=== PATIENT | male | born 1975 | race Caucasian/White ===

== ENCOUNTER → 2017-11-16 | Outpatient (CLI) | payer MEDICARE, OTHER | END | disposition home or self-care (01) | LOC: PMGWOUND 08:07 | DX: L89.314 Pressure ulcer of right buttock, stage 4 (principal); L89.323 Pressure ulcer of left buttock, stage 3; G82.20 Paraplegia, unspecified; I10 Essential (primary) hypertension; F41.9 Anxiety disorder, unspecified; Z87.891 Personal history of nicotine dependence | CPT/HCPCS: 99204; 99214 ==

== ENCOUNTER 2017-11-28 07:46 | Inpatient (IN) | payer MEDICARE, OTHER ==
[~2017-11-28 07:46] MED LIST: HYDROmorphone 2 MG/ML VIAL IV; LIDOCAINE 1% PF 2 ML VIAL. ID; MORPHINE SULFATE 2 MG/ML DISP.SYRIN. IV; ONDANSETRON PF 4 MG/2 ML VIAL. IV; PROCHLORPERAZINE 10 MG/2 ML VIAL. IV; ceFAZolin 2GM PREMIX 2 GM/50 ML BAG IV; fentaNYL PF VIAL 100 MCG/2 ML VIAL IV
[2017-11-28] MEDS: IV RINGERS,LACTATED 1000ML 1,000 ML IV (08:26)
[2017-11-28] MEDS ORDERED: MIDAZOLAM HCL/PF 2 MG/2 ML VIAL. (08:35)
[2017-11-28] MEDS ORDERED: DEXAMETHASONE SOD PHOS 20 MG/5 ML VIAL. ×2 (08:35→11:03)
[2017-11-28] MEDS ORDERED: ONDANSETRON PF 4 MG/2 ML VIAL. ×2 (08:35→11:03)
[2017-11-28] MEDS ORDERED: LIDOCAINE 2% PF Vial for OR 5 ML VIAL. ×2 (08:35→11:03)
[2017-11-28] MEDS ORDERED: PROPOFOL 0 ML IV (08:35)
[2017-11-28] MEDS ORDERED: fentaNYL PF VIAL 100 MCG/2 ML VIAL (08:35)
[2017-11-28] MEDS ORDERED: SEVOFLURANE 61 TO 120 MINUTES. IH (09:19)
[2017-11-28] MEDS ORDERED: KETOROLAC 30 MG/ML INJ FOR OR. INJ (09:54)
[2017-11-28] MEDS ORDERED: PROPOFOL 20 ML IV (11:03)
[2017-11-28] MEDS ORDERED: 0.9 % SODIUM CHLORIDE 10 ML DISP.SYRIN. IV (12:00)
[2017-11-28] MEDS ORDERED: diphenhydrAMINE 50 MG/ML VIAL IV (12:00)
[2017-11-28] MEDS: POTASSIUM CL 20MEQ-0.45% NACL 1,000 ML IV (13:00)
[2017-11-28] MEDS: diphenhydrAMINE HCL 25 MG CAPSULE PO (18:24)
[2017-11-28] MEDS: DOCUSATE SODIUM 100 MG CAPSULE. PO (21:00)
[2017-11-28] MEDS: ENOXAPARIN 40 MG/0.4 ML SYRINGE. SQ (21:44)
[2017-11-29] MEDS: POTASSIUM CL 20MEQ-0.45% NACL 1,000 ML IV ×2 (03:10→15:06)
[2017-11-29 05:49] LABS: MEAN CORPUSCULAR HEMOGLOBIN 26 pg (25-35); MEAN CORPUSCULAR HGB CONC 32 g/dL (31-37); MEAN CORPUSCULAR VOLUME 80 fL (79-100); PLATELET COUNT 223 x10^3/uL (140-400); RED BLOOD COUNT 4.23 x10^6/uL (4.30-5.70); RED CELL DISTRIBUTION WIDTH 17.1 % (11.5-14.5); WHITE BLOOD COUNT 10.2 x10^3/uL (4.0-11.0)
[2017-11-29 05:57] LABS: INR 1.1 (0.8-1.1); PROTHROMBIN TIME PATIENT 13.7 SEC (11.7-14.0)
[2017-11-29] MEDS: DOCUSATE SODIUM 100 MG CAPSULE. PO ×2 (07:59→21:00)
[2017-11-29] MEDS: LIDOCAINE 1% PF 2 ML VIAL. INJ (08:15)
[2017-11-29] MEDS: ONDANSETRON PF 4 MG/2 ML VIAL. IV (09:23)
[2017-11-29] MEDS: HYDROmorphone 2 MG/ML VIAL IV (09:25)
[2017-11-29] MEDS: LIDOCAINE 2%/EPI 1:100,000 20 ML VIAL. IJ ×2 (09:30)
[2017-11-29] MEDS ORDERED: VANCOMYCIN 1 GM in IV DEXTROSE 5% 250 ML IV (11:30)
[2017-11-29 12:11] LABS: ANION GAP 5 (6-14); BLOOD UREA NITROGEN 15 mg/dL (8-26); CALCIUM 7.8 mg/dL (8.5-10.1); CARBON DIOXIDE 30 mmol/L (21-32); CHLORIDE 106 mmol/L (98-107); CREATININE 0.6 mg/dL (0.7-1.3); GLUCOSE 97 mg/dL (70-99); POTASSIUM 4.2 mmol/L (3.5-5.1); SODIUM 141 mmol/L (136-145)
[2017-11-29 13:20] LABS: SEDIMENTATION RATE 36 (0-15)
[2017-11-29] MEDS: PIPERACILLIN/TAZOBACTAM 3.375 GM in IV NORMAL SALINE 50ML 50 ML IV ×2 (15:06→18:06)
[2017-11-29] MEDS: MULTIVITAMIN with MINERAL TABLET. PO (15:07)
[2017-11-29] MEDS: VANCOMYCIN 1 GM in IV 1/2 NORMAL SALINE 250 ML IV (15:07)
[2017-11-29] MEDS ORDERED: 0.9 % SODIUM CHLORIDE 10 ML DISP.SYRIN. IV ×2 (15:15)
[2017-11-29] MEDS: VANCOMYCIN PER PHARMACY MC (17:48)
[2017-11-29] MEDS: oxyCODONE/APAP 5/325 1 TAB TABLET PO (21:35)
[2017-11-29] MEDS: ASCORBIC ACID 500 MG TABLET PO (21:35)
[2017-11-29] MEDS: ENOXAPARIN 40 MG/0.4 ML SYRINGE. SQ (21:38)
[2017-11-30] MEDS: PIPERACILLIN/TAZOBACTAM 3.375 GM in IV NORMAL SALINE 50ML 50 ML IV ×4 (00:28→17:53)
[2017-11-30] MEDS: VANCOMYCIN 1 GM in IV 1/2 NORMAL SALINE 250 ML IV ×2 (03:16→14:57)
[2017-11-30] MEDS: POTASSIUM CL 20MEQ-0.45% NACL 1,000 ML IV (05:51)
[2017-11-30] MEDS: MULTIVITAMIN with MINERAL TABLET. PO (08:52)
[2017-11-30] MEDS: ASCORBIC ACID 500 MG TABLET PO ×2 (08:52→21:44)
[2017-11-30] MEDS: DOCUSATE SODIUM 100 MG CAPSULE. PO ×3 (08:54→23:59)
[2017-11-30] MEDS ORDERED: HYDROmorphone 2 MG/ML VIAL IV (11:15)
[2017-11-30] MEDS: VANCOMYCIN PER PHARMACY MC (11:18)
[2017-11-30] MEDS: oxyCODONE/APAP 5/325 1 TAB TABLET PO (12:03)
[2017-11-30] MEDS: LACTOBACILLUS RHAMNOSUS GG 1 CAPSULE. PO (21:44)
[2017-11-30] MEDS: ENOXAPARIN 40 MG/0.4 ML SYRINGE. SQ (21:45)
[2017-12-01] MEDS: PIPERACILLIN/TAZOBACTAM 3.375 GM in IV NORMAL SALINE 50ML 50 ML IV ×2 (00:05→08:32)
[2017-12-01 03:48] LABS: CREATININE 0.5 mg/dL (0.7-1.3)
[2017-12-01 03:48] LABS: GFR 181.5
[2017-12-01 03:54] LABS: VANC TR 7.3 mcg/mL (10.0-20.0)
[2017-12-01] MEDS ORDERED: VANCOMYCIN 1.25 GM in IV DEXTROSE 5% 250 ML IV (04:30)
[2017-12-01] MEDS: VANCOMYCIN 1.25 GM in IV NORMAL SALINE 250ML 250 ML IV (05:00)
[2017-12-01] MEDS: VANCOMYCIN PER PHARMACY MC (05:27)
[2017-12-01] MEDS: DOCUSATE SODIUM 100 MG CAPSULE. PO ×2 (08:31→21:23)
[2017-12-01] MEDS: ASCORBIC ACID 500 MG TABLET PO ×2 (08:31→21:23)
[2017-12-01] MEDS: LACTOBACILLUS RHAMNOSUS GG 1 CAPSULE. PO ×2 (08:31→21:23)
[2017-12-01] MEDS: MULTIVITAMIN with MINERAL TABLET. PO (08:31)
[2017-12-01] MEDS: ERTAPENEM 1GM IVPB FOR OMNI 50 ML IV (12:38)
[2017-12-01] MEDS: ENOXAPARIN 40 MG/0.4 ML SYRINGE. SQ (21:24)
[2017-12-02] MEDS: MULTIVITAMIN with MINERAL TABLET. PO (09:37)
[2017-12-02] MEDS: DOCUSATE SODIUM 100 MG CAPSULE. PO (09:38)
[2017-12-02] MEDS: ASCORBIC ACID 500 MG TABLET PO (09:38)
[2017-12-02] MEDS: LACTOBACILLUS RHAMNOSUS GG 1 CAPSULE. PO (09:38)
[2017-12-02] MEDS: ERTAPENEM 1GM IVPB FOR OMNI 50 ML IV (11:50)
== END 2017-12-02 16:35 | disposition home health service (06) | DRG 515 ==
LOC: SURG 07:46 → 4 NORTH 11:58
PROC: 0QB30ZZ Excision of Left Pelvic Bone, Open Approach (ICD-10-PCS; principal; 2017-11-28 09:03)
PROC: 0QB20ZZ Excision of Right Pelvic Bone, Open Approach (ICD-10-PCS; 2017-11-28 09:03)
DX: M46.28 Osteomyelitis of vertebra, sacral and sacrococcygeal region (principal); L89.314 Pressure ulcer of right buttock, stage 4; G82.20 Paraplegia, unspecified; L89.324 Pressure ulcer of left buttock, stage 4; I10 Essential (primary) hypertension; Z88.2 Allergy status to sulfonamides; Z88.8 Allergy status to other drugs, medicaments and biological substances
CPT/HCPCS: 36415; 36569; 80048; 80202; 82565; 85027; 85610; 85651; 87071; 87075; 87186; 87205; J0690; J1100; J1170; J1335; J1650; J1885; J2250; J2405; J2543; J2704; J3010; J3370; J3490; J7050; Q0163

== ENCOUNTER → 2017-12-09 | Outpatient (CLI) | payer MEDICARE, OTHER | END | disposition home or self-care (01) | LOC: PMGWOUND 08:18 | DX: L89.314 Pressure ulcer of right buttock, stage 4 (principal); L89.323 Pressure ulcer of left buttock, stage 3; G82.20 Paraplegia, unspecified; I10 Essential (primary) hypertension; F41.9 Anxiety disorder, unspecified; Z87.891 Personal history of nicotine dependence; M86.68 Other chronic osteomyelitis, other site | CPT/HCPCS: 97597; 97598; 97605 ==

== ENCOUNTER → 2017-12-12 | Outpatient (CLI) | payer MEDICARE, OTHER ==
[2017-12-12 13:01] LABS: ADD MAN DIFF? NO
[2017-12-12 13:10] LABS: BASO % 0 % (0-3); EOS # 0.1 x10^3/uL (0.0-0.7); EOS % 1 % (0-3); HEMATOCRIT 26.1 % (39.0-53.0); HEMOGLOBIN 8.5 g/dL (13.0-17.5); LYMPH % 13 % (24-48); MEAN CORPUSCULAR HEMOGLOBIN 25 pg (25-35); MEAN CORPUSCULAR HGB CONC 33 g/dL (31-37); MEAN CORPUSCULAR VOLUME 78 fL (79-100); MONO # 0.5 x10^3/uL (0.0-1.1); MONO % 6 % (0-9); NEUT # 6.6 x10^3uL (1.8-7.7); NEUT % 80 % (31-73); PLATELET COUNT 340 x10^3/uL (140-400); RED BLOOD COUNT 3.35 x10^6/uL (4.30-5.70); RED CELL DISTRIBUTION WIDTH 16.8 % (11.5-14.5); WHITE BLOOD COUNT 8.3 x10^3/uL (4.0-11.0)
[2017-12-12 13:36] LABS: ALBUMIN 2.5 g/dL (3.4-5.0); ALBUMIN/GLOBULIN RATIO 0.7 (1.0-1.7); ALK PHOS 75 U/L (46-116); ALT (SGPT) 15 U/L (16-63); ANION GAP 7 (6-14); AST (SGOT) 19 U/L (15-37); BLOOD UREA NITROGEN 14 mg/dL (8-26); BUN/CREATININE RATIO 28 (6-20); CALCIUM 8.1 mg/dL (8.5-10.1); CARBON DIOXIDE 29 mmol/L (21-32); CHLORIDE 102 mmol/L (98-107); CREATININE 0.5 mg/dL (0.7-1.3); GFR 181.5; GLUCOSE 84 mg/dL (70-99); POTASSIUM 4.2 mmol/L (3.5-5.1); SODIUM 138 mmol/L (136-145); TOTAL BILIRUBIN 0.3 mg/dL (0.2-1.0); TOTAL PROTEIN 6.3 g/dL (6.4-8.2)
[2017-12-12 14:11] LABS: SEDIMENTATION RATE 124 (0-15)
== END | disposition home or self-care (01) ==
LOC: SPEC 12:57
DX: I10 Essential (primary) hypertension (principal); Z79.2 Long term (current) use of antibiotics
CPT/HCPCS: 36415; 80053; 85025; 85651

== ENCOUNTER → 2017-12-19 | Outpatient (CLI) | payer MEDICARE, OTHER ==
[2017-12-19 13:55] LABS: ADD MAN DIFF? NO
[2017-12-19 14:07] LABS: BASO % 0 % (0-3); EOS # 0.1 x10^3/uL (0.0-0.7); EOS % 2 % (0-3); HEMATOCRIT 26.5 % (39.0-53.0); HEMOGLOBIN 8.4 g/dL (13.0-17.5); LYMPH # 1.3 x10^3/uL (1.0-4.8); LYMPH % 23 % (24-48); MEAN CORPUSCULAR HEMOGLOBIN 24 pg (25-35); MEAN CORPUSCULAR HGB CONC 32 g/dL (31-37); MEAN CORPUSCULAR VOLUME 76 fL (79-100); MONO # 0.3 x10^3/uL (0.0-1.1); MONO % 6 % (0-9); NEUT # 3.8 x10^3uL (1.8-7.7); NEUT % 68 % (31-73); PLATELET COUNT 392 x10^3/uL (140-400); RED BLOOD COUNT 3.48 x10^6/uL (4.30-5.70); RED CELL DISTRIBUTION WIDTH 17.9 % (11.5-14.5); WHITE BLOOD COUNT 5.5 x10^3/uL (4.0-11.0)
[2017-12-19 14:28] LABS: ALBUMIN 2.5 g/dL (3.4-5.0); ALBUMIN/GLOBULIN RATIO 0.6 (1.0-1.7); ALK PHOS 80 U/L (46-116); ALT (SGPT) 17 U/L (16-63); ANION GAP 5 (6-14); AST (SGOT) 18 U/L (15-37); BLOOD UREA NITROGEN 15 mg/dL (8-26); BUN/CREATININE RATIO 25 (6-20); CALCIUM 8.4 mg/dL (8.5-10.1); CARBON DIOXIDE 30 mmol/L (21-32); CHLORIDE 102 mmol/L (98-107); CREATININE 0.6 mg/dL (0.7-1.3); GLUCOSE 83 mg/dL (70-99); POTASSIUM 4.6 mmol/L (3.5-5.1); SODIUM 137 mmol/L (136-145); TOTAL BILIRUBIN 0.3 mg/dL (0.2-1.0); TOTAL PROTEIN 6.4 g/dL (6.4-8.2)
[2017-12-19 15:22] LABS: SEDIMENTATION RATE 105 (0-15)
== END | disposition home or self-care (01) ==
LOC: SPEC 13:53
DX: I10 Essential (primary) hypertension (principal); Z79.2 Long term (current) use of antibiotics
CPT/HCPCS: 36415; 80053; 85025; 85651

== ENCOUNTER → 2017-12-21 | Outpatient (CLI) | payer MEDICARE, OTHER | END | disposition home or self-care (01) | LOC: PMGWOUND 07:50 | DX: L89.314 Pressure ulcer of right buttock, stage 4 (principal); L89.323 Pressure ulcer of left buttock, stage 3; G82.20 Paraplegia, unspecified; I10 Essential (primary) hypertension; F41.9 Anxiety disorder, unspecified; M86.68 Other chronic osteomyelitis, other site; Z87.891 Personal history of nicotine dependence | CPT/HCPCS: 97597; 97605 ==

== ENCOUNTER → 2017-12-26 | Outpatient (CLI) | payer MEDICARE, OTHER ==
[2017-12-26 14:22] LABS: ADD MAN DIFF? NO
[2017-12-26 14:29] LABS: BASO % 1 % (0-3); EOS # 0.2 x10^3/uL (0.0-0.7); EOS % 4 % (0-3); HEMOGLOBIN 8.5 g/dL (13.0-17.5); LYMPH # 1.1 x10^3/uL (1.0-4.8); LYMPH % 20 % (24-48); MEAN CORPUSCULAR HEMOGLOBIN 23 pg (25-35); MEAN CORPUSCULAR HGB CONC 32 g/dL (31-37); MEAN CORPUSCULAR VOLUME 74 fL (79-100); MONO # 0.3 x10^3/uL (0.0-1.1); MONO % 6 % (0-9); NEUT # 3.9 x10^3uL (1.8-7.7); NEUT % 69 % (31-73); PLATELET COUNT 400 x10^3/uL (140-400); RED BLOOD COUNT 3.68 x10^6/uL (4.30-5.70); RED CELL DISTRIBUTION WIDTH 19.8 % (11.5-14.5); WHITE BLOOD COUNT 5.6 x10^3/uL (4.0-11.0)
[2017-12-26 14:56] LABS: ALBUMIN 2.4 g/dL (3.4-5.0); ALBUMIN/GLOBULIN RATIO 0.6 (1.0-1.7); ALK PHOS 83 U/L (46-116); ALT (SGPT) 20 U/L (16-63); ANION GAP 9 (6-14); AST (SGOT) 19 U/L (15-37); BLOOD UREA NITROGEN 17 mg/dL (8-26); BUN/CREATININE RATIO 28 (6-20); CALCIUM 7.9 mg/dL (8.5-10.1); CARBON DIOXIDE 27 mmol/L (21-32); CHLORIDE 106 mmol/L (98-107); CREATININE 0.6 mg/dL (0.7-1.3); GLUCOSE 107 mg/dL (70-99); POTASSIUM 4.3 mmol/L (3.5-5.1); SODIUM 142 mmol/L (136-145); TOTAL BILIRUBIN 0.1 mg/dL (0.2-1.0); TOTAL PROTEIN 6.3 g/dL (6.4-8.2)
[2017-12-26 15:35] LABS: SEDIMENTATION RATE 77 (0-15)
== END | disposition home or self-care (01) ==
LOC: SPEC 14:19
DX: Z45.2 Encounter for adjustment and management of vascular access device (principal); Z79.2 Long term (current) use of antibiotics
CPT/HCPCS: 36415; 80053; 85025; 85651

== ENCOUNTER → 2017-12-30 | Outpatient (CLI) | payer MEDICARE, OTHER | END | disposition home or self-care (01) | LOC: PMGWOUND 08:00 | DX: L89.314 Pressure ulcer of right buttock, stage 4 (principal); L89.323 Pressure ulcer of left buttock, stage 3; G82.20 Paraplegia, unspecified; M86.68 Other chronic osteomyelitis, other site; F41.9 Anxiety disorder, unspecified; I10 Essential (primary) hypertension; M46.28 Osteomyelitis of vertebra, sacral and sacrococcygeal region; Z87.891 Personal history of nicotine dependence | CPT/HCPCS: 97605 ==

== ENCOUNTER → 2018-01-02 | Outpatient (CLI) | payer MEDICARE, OTHER ==
[2018-01-02 12:46] LABS: ADD MAN DIFF? NO
[2018-01-02 12:59] LABS: BASO % 1 % (0-3); EOS # 0.2 x10^3/uL (0.0-0.7); EOS % 2 % (0-3); HEMOGLOBIN 8.2 g/dL (13.0-17.5); LYMPH # 0.9 x10^3/uL (1.0-4.8); LYMPH % 13 % (24-48); MEAN CORPUSCULAR HEMOGLOBIN 23 pg (25-35); MEAN CORPUSCULAR HGB CONC 32 g/dL (31-37); MEAN CORPUSCULAR VOLUME 71 fL (79-100); MONO # 0.5 x10^3/uL (0.0-1.1); MONO % 7 % (0-9); NEUT # 5.4 x10^3uL (1.8-7.7); NEUT % 78 % (31-73); PLATELET COUNT 346 x10^3/uL (140-400); RED BLOOD COUNT 3.64 x10^6/uL (4.30-5.70); RED CELL DISTRIBUTION WIDTH 20.4 % (11.5-14.5)
[2018-01-02 13:04] LABS: ALBUMIN 2.3 g/dL (3.4-5.0); ALBUMIN/GLOBULIN RATIO 0.6 (1.0-1.7); ALK PHOS 78 U/L (46-116); ALT (SGPT) 18 U/L (16-63); ANION GAP 8 (6-14); AST (SGOT) 16 U/L (15-37); BLOOD UREA NITROGEN 13 mg/dL (8-26); BUN/CREATININE RATIO 22 (6-20); CALCIUM 8.1 mg/dL (8.5-10.1); CARBON DIOXIDE 29 mmol/L (21-32); CHLORIDE 105 mmol/L (98-107); CREATININE 0.6 mg/dL (0.7-1.3); GLUCOSE 82 mg/dL (70-99); POTASSIUM 4.4 mmol/L (3.5-5.1); SODIUM 142 mmol/L (136-145); TOTAL BILIRUBIN 0.2 mg/dL (0.2-1.0); TOTAL PROTEIN 6.2 g/dL (6.4-8.2)
[2018-01-02 13:28] LABS: ANISOCYTOSIS MOD; HYPOCHROMIA SLIGHT; PLT ESTIMATE ADEQUATE (ADEQUATE); POLYCHROMASIA SLIGHT
[2018-01-02 13:29] LABS: MICROCYTOSIS MARKED
[2018-01-02 13:30] LABS: OVALOCYTES FEW
[2018-01-02 13:59] LABS: SEDIMENTATION RATE 85 (0-15)
== END | disposition home or self-care (01) ==
LOC: SPEC 12:43
DX: Z45.2 Encounter for adjustment and management of vascular access device (principal); Z79.2 Long term (current) use of antibiotics
CPT/HCPCS: 36415; 80053; 85025; 85651

== ENCOUNTER → 2018-01-06 | Outpatient (CLI) | payer MEDICARE, OTHER | END | disposition home or self-care (01) | LOC: PMGWOUND 08:00 | DX: L89.314 Pressure ulcer of right buttock, stage 4 (principal); L89.323 Pressure ulcer of left buttock, stage 3; G82.20 Paraplegia, unspecified; M86.68 Other chronic osteomyelitis, other site; F41.9 Anxiety disorder, unspecified; I10 Essential (primary) hypertension; M46.28 Osteomyelitis of vertebra, sacral and sacrococcygeal region; Z87.891 Personal history of nicotine dependence; Z79.01 Long term (current) use of anticoagulants | CPT/HCPCS: 97605 ==

== ENCOUNTER → 2018-01-09 | Outpatient (CLI) | payer MEDICARE, OTHER ==
[2018-01-09 12:43] LABS: ADD MAN DIFF? NO
[2018-01-09 13:11] LABS: BASO % 1 % (0-3); EOS # 0.2 x10^3/uL (0.0-0.7); EOS % 3 % (0-3); HEMATOCRIT 27.5 % (39.0-53.0); HEMOGLOBIN 8.4 g/dL (13.0-17.5); LYMPH % 16 % (24-48); MEAN CORPUSCULAR HEMOGLOBIN 21 pg (25-35); MEAN CORPUSCULAR HGB CONC 31 g/dL (31-37); MEAN CORPUSCULAR VOLUME 70 fL (79-100); MONO # 0.4 x10^3/uL (0.0-1.1); MONO % 6 % (0-9); NEUT % 75 % (31-73); PLATELET COUNT 344 x10^3/uL (140-400); RED BLOOD COUNT 3.92 x10^6/uL (4.30-5.70); RED CELL DISTRIBUTION WIDTH 21.7 % (11.5-14.5); WHITE BLOOD COUNT 6.7 x10^3/uL (4.0-11.0)
[2018-01-09 13:16] LABS: ALBUMIN 2.5 g/dL (3.4-5.0); ALBUMIN/GLOBULIN RATIO 0.6 (1.0-1.7); ALK PHOS 113 U/L (46-116); ALT (SGPT) 68 U/L (16-63); ANION GAP 6 (6-14); AST (SGOT) 41 U/L (15-37); BLOOD UREA NITROGEN 12 mg/dL (8-26); BUN/CREATININE RATIO 20 (6-20); CALCIUM 8.1 mg/dL (8.5-10.1); CARBON DIOXIDE 31 mmol/L (21-32); CHLORIDE 104 mmol/L (98-107); CREATININE 0.6 mg/dL (0.7-1.3); GLUCOSE 98 mg/dL (70-99); POTASSIUM 4.3 mmol/L (3.5-5.1); SODIUM 141 mmol/L (136-145); TOTAL BILIRUBIN 0.2 mg/dL (0.2-1.0); TOTAL PROTEIN 6.4 g/dL (6.4-8.2)
[2018-01-09 13:52] LABS: PLT ESTIMATE ADEQUATE (ADEQUATE)
[2018-01-09 13:53] LABS: ANISOCYTOSIS MOD; HYPOCHROMIA MOD; MICROCYTOSIS MOD; OVALOCYTES FEW; POIKILOCYTOSIS SLIGHT; POLYCHROMASIA SLIGHT
[2018-01-09 14:31] LABS: SEDIMENTATION RATE 68 (0-15)
== END | disposition home or self-care (01) ==
LOC: SPEC 12:18
DX: Z45.2 Encounter for adjustment and management of vascular access device (principal); Z79.2 Long term (current) use of antibiotics
CPT/HCPCS: 36415; 80053; 85025; 85651

== ENCOUNTER → 2018-01-13 | Outpatient (CLI) | payer MEDICARE, OTHER | END | disposition home or self-care (01) | LOC: PMGWOUND 08:08 | DX: L89.314 Pressure ulcer of right buttock, stage 4 (principal); L89.323 Pressure ulcer of left buttock, stage 3; G82.20 Paraplegia, unspecified; M86.68 Other chronic osteomyelitis, other site; F41.9 Anxiety disorder, unspecified; I10 Essential (primary) hypertension; M46.28 Osteomyelitis of vertebra, sacral and sacrococcygeal region; Z87.891 Personal history of nicotine dependence; Z79.01 Long term (current) use of anticoagulants | CPT/HCPCS: 97605 ==

== ENCOUNTER → 2018-01-16 | Outpatient (CLI) | payer MEDICARE, OTHER ==
[2018-01-16 11:56] LABS: ADD MAN DIFF? NO
[2018-01-16 12:02] LABS: BASO % 1 % (0-3); EOS # 0.2 x10^3/uL (0.0-0.7); EOS % 4 % (0-3); HEMATOCRIT 27.3 % (39.0-53.0); HEMOGLOBIN 8.4 g/dL (13.0-17.5); LYMPH % 18 % (24-48); MEAN CORPUSCULAR HEMOGLOBIN 21 pg (25-35); MEAN CORPUSCULAR HGB CONC 31 g/dL (31-37); MEAN CORPUSCULAR VOLUME 68 fL (79-100); MONO # 0.4 x10^3/uL (0.0-1.1); MONO % 6 % (0-9); NEUT % 70 % (31-73); PLATELET COUNT 324 x10^3/uL (140-400); RED CELL DISTRIBUTION WIDTH 21.3 % (11.5-14.5); WHITE BLOOD COUNT 5.6 x10^3/uL (4.0-11.0)
[2018-01-16 12:23] LABS: ALBUMIN 2.4 g/dL (3.4-5.0); ALBUMIN/GLOBULIN RATIO 0.6 (1.0-1.7); ALK PHOS 111 U/L (46-116); ALT (SGPT) 76 U/L (16-63); ANION GAP 6 (6-14); AST (SGOT) 39 U/L (15-37); BLOOD UREA NITROGEN 15 mg/dL (8-26); BUN/CREATININE RATIO 21 (6-20); CALCIUM 8.3 mg/dL (8.5-10.1); CARBON DIOXIDE 31 mmol/L (21-32); CHLORIDE 104 mmol/L (98-107); CREATININE 0.7 mg/dL (0.7-1.3); GFR 123.1; GLUCOSE 91 mg/dL (70-99); POTASSIUM 4.2 mmol/L (3.5-5.1); SODIUM 141 mmol/L (136-145); TOTAL BILIRUBIN 0.3 mg/dL (0.2-1.0); TOTAL PROTEIN 6.3 g/dL (6.4-8.2)
[2018-01-16 13:04] LABS: PLT ESTIMATE ADEQUATE (ADEQUATE)
[2018-01-16 13:05] LABS: ANISOCYTOSIS PRESENT; HYPOCHROMIA PRESENT; MICROCYTOSIS PRESENT
[2018-01-16 13:09] LABS: SEDIMENTATION RATE 70 (0-15)
== END | disposition home or self-care (01) ==
LOC: SPEC 11:50
DX: Z45.2 Encounter for adjustment and management of vascular access device (principal); Z79.2 Long term (current) use of antibiotics
CPT/HCPCS: 36415; 80053; 85025; 85651

== ENCOUNTER → 2018-01-20 | Outpatient (CLI) | payer MEDICARE, OTHER | END | disposition home or self-care (01) | LOC: PMGWOUND 07:49 | DX: L89.314 Pressure ulcer of right buttock, stage 4 (principal); L89.323 Pressure ulcer of left buttock, stage 3; G82.20 Paraplegia, unspecified; M86.68 Other chronic osteomyelitis, other site; F41.9 Anxiety disorder, unspecified; I10 Essential (primary) hypertension; M46.28 Osteomyelitis of vertebra, sacral and sacrococcygeal region; Z87.891 Personal history of nicotine dependence; Z79.01 Long term (current) use of anticoagulants; Z79.2 Long term (current) use of antibiotics | CPT/HCPCS: 97605 ==

== ENCOUNTER → 2018-01-27 | Outpatient (CLI) | payer MEDICARE, OTHER | END | disposition home or self-care (01) | LOC: PMGWOUND 08:07 | DX: L89.314 Pressure ulcer of right buttock, stage 4 (principal); L89.323 Pressure ulcer of left buttock, stage 3; G82.20 Paraplegia, unspecified; M86.68 Other chronic osteomyelitis, other site; I10 Essential (primary) hypertension; Z87.891 Personal history of nicotine dependence; F41.9 Anxiety disorder, unspecified | CPT/HCPCS: 97605 ==

== ENCOUNTER → 2018-05-16 | Outpatient (CLI) | payer MEDICARE, OTHER ==
[2018-05-16 13:07] LABS: ADD MAN DIFF? NO
[2018-05-16 13:21] LABS: BASO % 1 % (0-3); EOS # 0.3 x10^3/uL (0.0-0.7); EOS % 5 % (0-3); HEMATOCRIT 39.9 % (39.0-53.0); HEMOGLOBIN 13.1 g/dL (13.0-17.5); LYMPH # 1.2 x10^3/uL (1.0-4.8); LYMPH % 18 % (24-48); MEAN CORPUSCULAR HEMOGLOBIN 27 pg (25-35); MEAN CORPUSCULAR HGB CONC 33 g/dL (31-37); MEAN CORPUSCULAR VOLUME 82 fL (79-100); MONO # 0.5 x10^3/uL (0.0-1.1); MONO % 8 % (0-9); NEUT # 4.4 x10^3uL (1.8-7.7); NEUT % 69 % (31-73); PLATELET COUNT 200 x10^3/uL (140-400); RED BLOOD COUNT 4.88 x10^6/uL (4.30-5.70); RED CELL DISTRIBUTION WIDTH 25.9 % (11.5-14.5); WHITE BLOOD COUNT 6.4 x10^3/uL (4.0-11.0)
[2018-05-16 14:26] LABS: SEDIMENTATION RATE 13 (0-15)
== END | disposition home or self-care (01) ==
LOC: SPEC 13:04
DX: D64.9 Anemia, unspecified (principal); M86.9 Osteomyelitis, unspecified
CPT/HCPCS: 36415; 85025; 85651